=== PATIENT | male | born 1995 | race Caucasian/White ===

== ENCOUNTER 2016-09-04 09:38 | Emergency (ER) | payer BC, OTHER ==
[2016-09-04 10:16] VITALS: TEMP 98.4
[2016-09-04 10:37] VITALS: BP 127/76; PULSE 58; RESP 14; O2SAT 97
--- NOTE | 2016-09-04 11:31 | UCPHY ---
H & P Time Seen by Provider: 09/04/16 11:15 Patient Type: Established HPI/ROS: This patient presents with a chief complaint of right knee injury which occurred while he was skiing a yesterday. He localizes pain to the area of the upper knee in the region of the patella on the lateral side. He is not sure of the exact mechanism but ran into another snow boarder which caused the accident. He has nose the pain is worse worse with movement and the is unable to fully extend the knee. He has been able to walk and was able to ski the remainder of the slope back to the base. He denies any motor or sensory dysfunction. He denies any other injury. Smoking Status: Never smoked Physical Exam: This is a well-developed well-nourished male who is in no discomfort except when moving when he appears to be in [id number] distress. He is alert, lucid, and has a normal mental status. Examination of the right knee reveals a mild joint effusion. I was unable to elicit any significant tenderness either medially or laterally including the joint lines. The medial collateral, lateral collateral ligaments are intact as are the cruciates. CMS is intact distally. Constitutional: Initial Vital Signs Temperature (C) 36.9 C 09/04/16 10:13 Heart Rate 58 L 09/04/16 10:13 Respiratory Rate 14 09/04/16 10:13 Blood Pressure 127/76 H 09/04/16 10:13 O2 Sat (%) 97 09/04/16 10:13 O2 Delivery Mode Room Air Allergies/Adverse Reactions: No Known Allergies Allergy (Verified 09/04/16 10:11) Home Medications: Medication Instructions Recorded NK [No Known Home Meds] 09/04/16 Medical Decision Making ED Course/Re-evaluation: No x-ray was obtain since I do not anticipate a bony injury. Differential Diagnosis: The exact source of this patient's pain is not clear at this time although all of his ligaments appear to be stable and in good condition. I do not believe that there is a fracture present. Departure - Departure Disposition: Home, Routine, Self-Care Clinical Impression: Knee sprain Qualifiers: Encounter type: initial encounter Involved ligament of knee: unspecified ligament Laterality: right Qualified Code(s): S83.91XA - Sprain of unspecified site of right knee, initial encounter Condition: Good Instructions: Knee Sprain (ED) Additional Instructions: You should follow-up at [facility] 7-10 days for re-evaluation. Avoid painful activities. Apply ice to the area of injury for 20 minutes every 2 hours for 3 days following your injury. After 3 days (72 hours) it is safe to apply heat frequently throughout the day and I would recommend you're doing so. However if ice feels better it is okay to do this. Elevate the area of the injury as much as possible for the next 2 or 3 days or longer if you have a serious injury. If you have been told that it is safe to use the injured extremity do so in a limited fashion for the first 2-3 days. Afterwards left pain be your guide. Adult Pain & Fever Control: We recommend Acetaminophen (Tylenol) and Ibuprofen (Motrin, Advil) for pain and fever control. When fever is high or pain severe, both drugs can be used at the same time, but at different intervals. Please note the time differences. Your dose is: Acetaminophen [650]mg every 4 to 6 hours ibuprofen [600]mg every [6] hours with food OR naproxen Sodium (Aleve) [440]mg every 12 hours. Note: do not take Acetaminophen with Hydrocodone (Vicodin, Lortab) or Oxycodone (Percocet). These medications also contain Acetaminophen. No more than 3000 mg of Acetaminophen should be taken in 24 hours (for an adult) . The maximal dose of ibuprofen that it is safe in a 24-hour period is 2400 mg. You may take 400 mg every 4 hours, 600 mg every 6 hours or 800 mg every 8 hours safely. Referrals: NONE *PRIMARY CARE P,. [Primary Care Provider] - As per Instructions - PQRS PQRS Measurement: Not applicable
== END 2016-09-04 11:42 | disposition home or self-care (01) ==
LOC: CED 09:38
DX: S83.91XA Sprain of unspecified site of right knee, initial encounter (principal); V00.328A Other snow-ski accident, initial encounter; Y93.23 Activity, snow (alpine) (downhill) skiing, snowboarding, sledding, tobogganing and snow tubing; Y92.828 Other wilderness area as the place of occurrence of the external cause; Y99.8 Other external cause status
CPT/HCPCS: G0463-PO

== ENCOUNTER → 2016-10-14 | Outpatient (CLI) | payer OTHER | LOC: FIMAGING 13:07 | PROVIDERS: ATTEND Orthopaedic Surgery | DX: M79.89 Other specified soft tissue disorders (principal); Z98.890 Other specified postprocedural states ==

== ENCOUNTER 2018-06-12 16:59 | Emergency (ER) | payer OTHER ==
[2018-06-12] MEDS ORDERED: ONDANSETRON 4 MG/2 ML VIAL IVP ONE (17:25)
[2018-06-12] MEDS ORDERED: NS 1,000 ML IV ONE (17:25)
[2018-06-12 18:03] LABS: PLATELET COUNT 266 10^3/uL (150-400)
--- NOTE | 2018-06-12 18:05 | EDPHY ---
H & P Stated Complaint: Abd pain, n/v/d Time Seen by Provider: 06/12/18 17:25 HPI/ROS: CHIEF COMPLAINT: Left upper quadrant pain, vomiting and diarrhea HISTORY OF PRESENT ILLNESS: 23-year-old male presents with left upper quadrant pain. Onset of vomiting and diarrhea 3 days ago. The vomiting has resolved, but he continues to have loose stools 2-3 times daily. 2 days ago he was snowboarding, fell forward directly onto his chest and abdomen. Immediate onset of left upper quadrant pain after the injury. The pain was fairly severe yesterday, has subsided somewhat today. Concern for splenic injury. History of traumatic splenic rupture. 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 - Social History Smoking Status: Never smoked Alcohol Use: Sober - Physical Exam Exam: General Appearance: Alert, pleasant Eyes: Pupils equal and round, no conjunctival pallor or injection ENT, Mouth: Mucous membranes moist Neck: Normal inspection Respiratory: Lungs are clear to auscultation Cardiovascular: Regular rate and rhythm Gastrointestinal: Abdomen is soft, left upper quadrant tenderness Neurological: A&O, nonfocal, normal gait Skin: Warm and dry, no rash Extremities: Nontender, no pedal edema Psychiatric: Mood and affect normal Constitutional: Initial Vital Signs Temperature (C) 36.9 C 06/12/18 17:07 Heart Rate 58 L 06/12/18 17:07 Respiratory Rate 16 06/12/18 17:07 Blood Pressure 128/74 H 06/12/18 17:07 O2 Sat (%) 97 06/12/18 17:07 O2 Delivery Mode Room Air Allergies/Adverse Reactions: No Known Allergies Allergy (Verified 06/12/18 17:06) Home Medications: Medication Instructions Recorded Ondansetron Odt [Zofran Odt 4 mg 4 mg PO Q4 PRN #6 tab 06/12/18 (*)] Medical Decision Making - Diagnostics Imaging Results: Imaging Impressions Abdomen CT 06/12/18 17:45 Impression: 1. Chronic sequela from previous trauma including healed grade 1 laceration of the spleen and residual subcapsular hematoma superior left kidney. 2. No acute abnormality seen within the abdomen or pelvis. Findings discussed with Naomi Gaston M.D. at 19:37 hour, 06/12/2018. Imaging: Discussed imaging studies w/ boat pilot Radiologist ED Course/Re-evaluation: This patient presents with vomiting and diarrhea, consistent with acute gastroenteritis, as well as traumatic left upper quadrant pain, concerning for splenic injury. CT scan of the abdomen pelvis ordered and is unremarkable. No evidence of splenic or renal injury. Results discussed with the patient. Abdominal exam remains unchanged on discharge. Zofran prescribed. Will follow up with PCP. Warning signs discussed. Differential Diagnosis: Differential diagnosis includes though it is not limited to appendicitis, cholecystitis, diverticulitis, pyelonephritis, bowel perforation, small bowel obstruction. - Data Points Laboratory Results: Laboratory Results 06/12/18 17:45 06/12/18 06/12/18 06/12/18 19:05 17:58 17:45 WBC 6.46 10^3/uL 10^3/uL (3.80-9.50) RBC 4.91 10^6/uL 10^6/uL (4.40-6.38) Hgb 15.8 g/dL g/dL (13.7-17.5) POC Hgb 15.6 gm/dL gm/dL (13.7-17.5) Hct 43.2 % % (40.0-51.0) POC Hct 46 % % (40-51) MCV 88.0 fL fL (81.5-99.8) MCH 32.2 pg pg (27.9-34.1) MCHC 36.6 g/dL g/dL (32.4-36.7) RDW 12.0 % % (11.5-15.2) Plt Count 266 10^3/uL 10^3/uL (150-400) MPV 10.1 fL fL (8.7-11.7) Neut % (Auto) 51.0 % % (39.3-74.2) Lymph % (Auto) 29.3 % % (15.0-45.0) [place] % (Auto) 14.6 % H % (4.5-13.0) Eos % (Auto) 4.0 % % (0.6-7.6) Baso % (Auto) 0.8 % % (0.3-1.7) Nucleat RBC Rel Count 0.0 % % (0.0-0.2) Absolute Neuts (auto) 3.30 10^3/uL 10^3/uL (1.70-6.50) Absolute Lymphs (auto) 1.89 10^3/uL 10^3/uL (1.00-3.00) Absolute Monos (auto) 0.94 10^3/uL H 10^3/uL (0.30-0.80) Absolute Eos (auto) 0.26 10^3/uL 10^3/uL (0.03-0.40) Absolute Basos (auto) 0.05 10^3/uL 10^3/uL (0.02-0.10) Absolute Nucleated RBC 0.00 10^3/uL 10^3/uL (0-0.01) Immature Gran % 0.3 % % (0.0-1.1) Immature Gran # 0.02 10^3/uL 10^3/uL (0.00-0.10) POC Sodium 143 mEq/L mEq/L (135-145) POC Potassium 3.7 mEq/L mEq/L (3.3-5.0) POC Chloride 104 mEq/L mEq/L (97-110) POC BUN 7 mg/dL mg/dL (7-23) POC Creatinine 0.8 mg/dL mg/dL (0.7-1.3) POC Glucose 99 mg/dL mg/dL (70-100) Urine Color YELLOW Urine Appearance CLEAR Urine pH 7.0 (5.0-7.5) Ur Specific [place] > 1.035 H (1.002-1.030) Urine Protein NEGATIVE (NEGATIVE) Urine Ketones NEGATIVE (NEGATIVE) Urine Blood NEGATIVE (NEGATIVE) Urine Nitrate NEGATIVE (NEGATIVE) Urine Bilirubin NEGATIVE (NEGATIVE) Urine Urobilinogen NEGATIVE EU EU (0.2-1.0) Ur Leukocyte Esterase NEGATIVE (NEGATIVE) Urine Glucose NEGATIVE (NEGATIVE) Medications Given: Discontinued Medications Sodium Chloride (Ns) 1,000 mls @ 0 mls/hr IV EDNOW ONE; Wide Open PRN Reason: Protocol Stop: 06/12/18 17:26 Last Admin: 06/12/18 17:47 Dose: 1,000 mls Ondansetron HCl (Zofran) 4 mg IVP EDNOW ONE Stop: 06/12/18 17:26 Last Admin: 06/12/18 17:47 Dose: 4 mg Point of Care Test Results: Chemistry 06/12/18 17:58 POC Sodium 143 mEq/L mEq/L (135-145) POC Potassium 3.7 mEq/L mEq/L (3.3-5.0) POC Chloride 104 mEq/L mEq/L (97-110) POC BUN 7 mg/dL mg/dL (7-23) POC Creatinine 0.8 mg/dL mg/dL (0.7-1.3) POC Glucose 99 mg/dL mg/dL (70-100) ISTAT H&H 06/12/18 17:58 POC Hgb 15.6 gm/dL gm/dL (13.7-17.5) POC Hct 46 % % (40-51) Departure - Departure Disposition: Home, Routine, Self-Care Clinical Impression: Acute gastroenteritis Abdominal pain Qualifiers: Abdominal location: left upper quadrant Qualified Code(s): R10.12 - Left upper quadrant pain Condition: Good Instructions: Gastroenteritis (ED), Acute Abdominal Pain (ED) Additional Instructions: 1. Clear liquids for 24 hours. 2. Advance diet as tolerated. I suggest the BRAT diet to start: bananas, rice, applesauce and toast. 3. Return for worsening symptoms, persistent vomiting, abdominal pain, any concerns. Referrals: Mick Leger MD [Medical Doctor] - As per Instructions Prescriptions: Ondansetron Odt [Zofran Odt 4 mg (*)] 4 mg PO Q4 PRN #6 tab PRN Reason: Nausea
[2018-06-12] MEDS ORDERED: IOPAMIDOL (ISOVUE-300) 100 ML BTL ONE (18:28)
[2018-06-12 20:08] VITALS: BP 119/67
== END 2018-06-12 20:08 | disposition home or self-care (01) ==
DX: R10.12 Left upper quadrant pain (principal); K52.9 Noninfective gastroenteritis and colitis, unspecified; E86.9 Volume depletion, unspecified; V00.311A Fall from snowboard, initial encounter; Y93.23 Activity, snow (alpine) (downhill) skiing, snowboarding, sledding, tobogganing and snow tubing; Z87.828 Personal history of other (healed) physical injury and trauma
CPT/HCPCS: 82435-PO; 82565-PO; 82947-PO; 84132-PO; 84295-PO; 84520-PO; 85014-PO; 96374; J2405; Q9967